=== PATIENT | female | born 1985 | race African-American/Black ===

== ENCOUNTER 2025-03-07 09:45 | Emergency (ER) | payer MEDICAID ==
[~2025-03-07] VITALS: Ht 160 cm; Wt 81.8 kg
[2025-03-07 09:54] VITALS: TEMP 98.1
[2025-03-07] MEDS ORDERED: METF-1211 PO (09:58)
[2025-03-07 10:15] LABS: GLUCOMETER DEV NAME(LOC) ER.7; GLUCOSE,POINT OF CARE 250 MG/DL (70-110)
[2025-03-07] MEDS: ONDANSETRON HCL 4 MG/2 ML VIAL IVP ONE (10:39)
[2025-03-07] MEDS: CefTRIAXone 1 GM/DEXTROSE 50 ML IV ONE (10:39)
[2025-03-07] MEDS: LIDOCAINE 1% 10 ML VIAL SQ ONE (10:39)
[2025-03-07] MEDS: KETOROLAC TROMETHAMINE 30 MG/ML VIAL IVP ONE (10:40)
[2025-03-07 10:50] LABS: PLATELET COUNT (AUTO) 363 K/uL (150-450); RED BLOOD CELL COUNT(AUTO) 4.73 MIL/uL (4.00-5.20); RED CELL DISTRIBUTION WIDTH 15.0 % (11.5-14.5); WHITE BLOOD COUNT (AUTO) 8.8 K/uL (4.5-11.0)
[2025-03-07 10:55] LABS: CALCIUM, TOTAL 8.5 mg/dL (8.8-10.5); CREATININE 0.54 mg/dL (0.60-1.30); GLOMERULAR FILTR. RATE CALC > 60 mL/min (>60); GLUCOSE,RANDOM 228 mg/dL (70-110); SODIUM SERUM 139 mmol/L (136-145); UREA NITROGEN, BLOOD 2 mg/dL (7-18)
[2025-03-07 11:15] LABS: LACTIC ACID 2.8 mmol/L (0.4-2.0)
[2025-03-07] MEDS ORDERED: IBUP-1554 PO (12:25)
[2025-03-07] MEDS ORDERED: DOXY-354 PO (12:25)
[2025-03-07] MEDS ORDERED: HYDR-4062 PO (12:25)
[2025-03-07] MEDS ORDERED: CEPH-558 PO (12:25)
[2025-03-07 12:30] VITALS: BP 140/88; PULSE 99; RESP 17; O2SAT 99
== END 2025-03-07 13:03 | disposition home or self-care (01) ==
LOC: EMS 09:54
DX: L03.211 Cellulitis of face (principal); L02.01 Cutaneous abscess of face; E11.65 Type 2 diabetes mellitus with hyperglycemia; Z90.49 Acquired absence of other specified parts of digestive tract; Z79.899 Other long term (current) drug therapy
CPT/HCPCS: 99284; 96365; 10060; 96375; 80048; 82962; 83605; 84703; 85025; 36415; J1885; J0696; J1171; J2405; J3490